=== PATIENT | male | born 1980 | race Two or more races ===

== ENCOUNTER → 2020-12-18 | Outpatient (CLI) | payer OTHER | LOC: M LABSMTC 09:46 | PROVIDERS: ATTEND Physical Medicine & Rehabilitation | DX: Z01.812 Encounter for preprocedural laboratory examination (principal); Z20.822 Contact with and (suspected) exposure to COVID-19 ==

== ENCOUNTER 2021-09-07 15:20 | Emergency (ER) | payer OTHER ==
[~2021-09-07] VITALS: Ht 180.3 cm; Wt 68.2 kg
[2021-09-07 15:36] VITALS: BP 131/81
[2021-09-07] MEDS ORDERED: KETOROLAC 60MG 2ML VIAL IM ONE (16:30)
[2021-09-07] MEDS ORDERED: SERT25TA21 (17:04)
[2021-09-07] MEDS ORDERED: CYCL-707 (17:04)
[2021-09-07] MEDS ORDERED: KETO10TAB PO ×2 (17:11→17:36)
== END 2021-09-07 17:46 | disposition home or self-care (01) ==
LOC: M ED 15:20
DX: S23.3XXA Sprain of ligaments of thoracic spine, initial encounter (principal); V48.0XXA Car driver injured in noncollision transport accident in nontraffic accident, initial encounter; Y92.9 Unspecified place or not applicable; Y93.9 Activity, unspecified; Y99.9 Unspecified external cause status; I10 Essential (primary) hypertension; F41.9 Anxiety disorder, unspecified; F32.9 Major depressive disorder, single episode, unspecified
CPT/HCPCS: 72072; 96372; 99284; J1885

== ENCOUNTER 2021-09-17 17:25 | Emergency (ER) | payer OTHER ==
[~2021-09-17] VITALS: Ht 177.8 cm; Wt 68.2 kg
[~2021-09-17 17:25] MED LIST: CYCL-707; KETO10TAB PO; SERT25TA21
[2021-09-17] MEDS ORDERED: KETOROLAC 30 MG/ML 1ML VIAL IM ONE (18:30)
[2021-09-17] MEDS ORDERED: methocarbamoL 500 MG TAB PO ONE (18:35)
[2021-09-17] MEDS ORDERED: METH-1164 PO ×3 (20:11→22:01)
[2021-09-17] MEDS ORDERED: LIDO5DIS41 TOP ×3 (20:16→22:00)
[2021-09-17] MEDS ORDERED: LIDOCAINE 5% (LIDODERM) PATCH TD ONE (20:20)
[2021-09-17 20:27] VITALS: BP 143/89
[2021-09-18] MEDS ORDERED: **NOTE PATIENT COMMENT** MISC XX ONE (09:00)
== END 2021-09-17 20:29 | disposition home or self-care (01) ==
LOC: M ED 17:25
DX: M79.602 Pain in left arm (principal); R07.89 Other chest pain; M54.2 Cervicalgia; R07.81 Pleurodynia; V48.0XXD Car driver injured in noncollision transport accident in nontraffic accident, subsequent encounter; K21.9 Gastro-esophageal reflux disease without esophagitis; Z79.899 Other long term (current) drug therapy
CPT/HCPCS: 71101; 72125; 96372; 99283; J1885